=== PATIENT | female | born 1950 | race Caucasian/White ===

== ENCOUNTER 2017-10-03 19:32 | Emergency (ER) | payer MEDICARE, MEDICAID ==
[~2017-10-03] VITALS: Ht 162.6 cm; Wt 56.7 kg
[~2017-10-03 19:32] MED LIST: IBUP-1984 PO; NAPR-56 PO; VALA100027 PO
[2017-10-03] MEDS ORDERED: IBUP-1985 PO (22:32)
[2017-10-03 22:42] VITALS: BP 135/75
== END 2017-10-03 22:43 | disposition home or self-care (01) ==
LOC: ER 19:33
DX: M71.21 Synovial cyst of popliteal space [Baker], right knee (principal); F11.10 Opioid abuse, uncomplicated; E78.00 Pure hypercholesterolemia, unspecified; I10 Essential (primary) hypertension; F12.90 Cannabis use, unspecified, uncomplicated; F15.90 Other stimulant use, unspecified, uncomplicated; Z60.2 Problems related to living alone; Z98.890 Other specified postprocedural states; Z86.711 Personal history of pulmonary embolism; Z85.038 Personal history of other malignant neoplasm of large intestine; Z56.0 Unemployment, unspecified; Z79.899 Other long term (current) drug therapy
CPT/HCPCS: 93971; 99284

== ENCOUNTER 2019-06-15 13:54 | Emergency (ER) | payer MEDICARE, MEDICAID ==
[~2019-06-15] VITALS: Ht 167.6 cm; Wt 57.5 kg
[~2019-06-15 13:54] MED LIST changes: +IBUP-1985 PO; -VALA100027 PO; +VALA100031 PO
[2019-06-15 14:01] VITALS: BP 150/92
--- NOTE | 2019-06-15 14:18 | NUR ---
Left foot is swollen, warm and red, cap refill approx 3 seconds. Patient reports itchiness, denies pain, parasthesia or loss of sensation. She reports she was bitten by an insect.
[2019-06-15] MEDS ORDERED: CEPH250T PO (14:48)
[2019-06-15] MEDS ORDERED: BACDS PO (14:49)
--- NOTE | 2019-06-15 15:06 | NUR ---
Patient requested crutches; states she is not able to bear weight on affected foot. Crutches measured and given, patient educated on safe use.
== END 2019-06-15 15:09 | disposition home or self-care (01) ==
LOC: ER 13:55
DX: L03.116 Cellulitis of left lower limb (principal); E78.00 Pure hypercholesterolemia, unspecified; I10 Essential (primary) hypertension; F12.90 Cannabis use, unspecified, uncomplicated; F15.90 Other stimulant use, unspecified, uncomplicated; F11.90 Opioid use, unspecified, uncomplicated; Z85.038 Personal history of other malignant neoplasm of large intestine; Z86.11 Personal history of tuberculosis; Z98.890 Other specified postprocedural states; Z79.2 Long term (current) use of antibiotics; Z79.899 Other long term (current) drug therapy
CPT/HCPCS: 99283

== ENCOUNTER 2022-02-03 19:20 | Emergency (ER) | payer MEDICARE, MEDICAID ==
[~2022-02-03] VITALS: Ht 167.6 cm; Wt 65.9 kg
[2022-02-03] MEDS ORDERED: HYDROcodone/acetaminophen 10/325mg tab PO ONE (20:05)
[2022-02-03] MEDS ORDERED: ketorolac trometh. 30mg/ml inj. IV ONE (21:50)
[2022-02-03] MEDS ORDERED: HYDR-3972 PO (21:57)
[2022-02-03] MEDS ORDERED: IBUP-1985 PO (21:57)
[2022-02-03 23:23] VITALS: BP 145/86
== END 2022-02-03 23:26 | disposition home or self-care (01) ==
LOC: ER 19:20
DX: S52.121A Displaced fracture of head of right radius, initial encounter for closed fracture (principal); S42.411A Displaced simple supracondylar fracture without intercondylar fracture of right humerus, initial encounter for closed fracture; W18.39XA Other fall on same level, initial encounter; Y93.89 Activity, other specified; Y92.89 Other specified places as the place of occurrence of the external cause; Y99.8 Other external cause status; E78.00 Pure hypercholesterolemia, unspecified; I10 Essential (primary) hypertension; F12.10 Cannabis abuse, uncomplicated; F15.10 Other stimulant abuse, uncomplicated; Z59.00 Homelessness unspecified; Z79.899 Other long term (current) drug therapy
CPT/HCPCS: 29105; 73070; 73564; 96374; 99284; J1885; A4565; A6449

== ENCOUNTER 2024-07-13 15:36 | Emergency (ER) | payer MEDICARE, MEDICAID ==
[~2024-07-13] VITALS: Ht 167.6 cm; Wt 79.2 kg
[2024-07-13 15:45] VITALS: BP 158/102; PULSE 91; RESP 16; TEMP 98; O2SAT 96
[2024-07-13] MEDS ORDERED: DOXY100C43 PO (16:27)
[2024-07-13] MEDS ORDERED: IBUP-1984 PO (16:27)
== END 2024-07-13 17:03 | disposition home or self-care (01) ==
LOC: ER 15:37
DX: L03.115 Cellulitis of right lower limb (principal); E78.00 Pure hypercholesterolemia, unspecified; I10 Essential (primary) hypertension; F12.90 Cannabis use, unspecified, uncomplicated; F11.90 Opioid use, unspecified, uncomplicated; F15.90 Other stimulant use, unspecified, uncomplicated; Z85.038 Personal history of other malignant neoplasm of large intestine
CPT/HCPCS: 73630; 99283